=== PATIENT | male | born 1970 ===

== ENCOUNTER 2021-01-12 22:25 | Emergency (ER) | payer SELFPAY ==
[~2021-01-12] VITALS: Ht 180.3 cm; Wt 110.2 kg
[2021-01-12] MEDS ORDERED: Catapres-Tts 11 EACH TOP (22:42)
[2021-01-12] MEDS ORDERED: NAPR500 PO (23:59)
[2021-01-12] MEDS ORDERED: CYCL10 PO (23:59)
[2021-01-12] MEDS ORDERED: LIDO700A20 TOP (23:59)
== END 2021-01-13 01:00 | disposition home or self-care (01) ==
LOC: ER 22:25
DX: M54.32 Sciatica, left side (principal); M54.31 Sciatica, right side; Z79.899 Other long term (current) drug therapy
CPT/HCPCS: 96372; 99283; A9270; J1885